=== PATIENT | female | born 1995 | race Two or more races ===

== ENCOUNTER 2024-11-30 02:34 | Emergency (ER) | payer OTHER ==
[~2024-11-30] VITALS: Ht 154.9 cm; Wt 122.5 kg
[2024-11-30] MEDS ORDERED: GUAIFENESIN 200 MG/10 ML BLIST.PACK PO STA (05:08)
[2024-11-30] MEDS ORDERED: METHYLPREDNISOLONE SOD SUCC 125 MG VIAL IM STA (05:08)
[2024-11-30] MEDS ORDERED: DIPHENHYDRAMINE HCL 12.5 MG/5 ML BLIST.PACK PO STA (05:08)
[2024-11-30] MEDS ORDERED: METHYLPREDNISOLONE SOD SUCC 125 MG VIAL ONE (05:11)
[2024-11-30] MEDS ORDERED: GUAIFENESIN 200 MG/10 ML BLIST.PACK PO ONE (05:12)
[2024-11-30] MEDS ORDERED: DIPHENHYDRAMINE HCL 12.5 MG/5 ML BLIST.PACK PO ONE (05:12)
[2024-11-30] MEDS ORDERED: ALBUTEROL SULFATE 3 ML/2.5 MG AMPUL.NEB IH SCH (05:15)
[2024-11-30 05:45] LABS: HEMATOCRIT 35.3 % (36.0-45.00); HEMOGLOBIN 11.9 g/dL (12.0-15.00); MEAN CORPUSCULAR HEMOGLOBIN 25.9 pg (27.00-32.0); MEAN CORPUSCULAR HGB CONC 33.7 g/dl (32.0-36.0); PLATELET COUNT 337 K/uL (150-450); RED BLOOD COUNT 4.59 M/uL (4.00-6.00); RED CELL DISTRIBUTION WIDTH 13.6 % (11.5-14.5)
[2024-11-30] MEDS ORDERED: ALBUTEROL SULFATE 3 ML/2.5 MG AMPUL.NEB IH ONE (05:45)
[2024-11-30 08:04] LABS: COVID-19 AG NEGATIVE (NEGATIVE)
[2024-11-30 08:12] LABS: INFLUENZA A AG NEGATIVE (NEGATIVE)
== END 2024-11-30 09:12 | disposition home or self-care (01) ==
LOC: ER 02:35
PROVIDERS: General Practice
DX: R50.9 Fever, unspecified (principal); J45.909 Unspecified asthma, uncomplicated; Z88.8 Allergy status to other drugs, medicaments and biological substances; Z20.822 Contact with and (suspected) exposure to COVID-19

== ENCOUNTER 2024-12-09 21:05 | Emergency (ER) | payer OTHER ==
[~2024-12-09] VITALS: Ht 182.9 cm; Wt 122.5 kg
[2024-12-09] MEDS ORDERED: METOCLOPRAMIDE HCL 5 MG/ML VIAL IM STA (22:05)
[2024-12-09] MEDS ORDERED: FAMOtidine 10 MG/ML (4ML VIAL) IV PUSH STA (22:06)
[2024-12-09] MEDS ORDERED: HYOSCYAMINE SULFATE 0.125 MG TAB.SUBL SL ONE (22:15)
[2024-12-09] MEDS ORDERED: METOCLOPRAMIDE HCL 5 MG/ML VIAL ONE (22:31)
[2024-12-09] MEDS ORDERED: HYOSCYAMINE SULFATE 0.125 MG TAB.SUBL ONE (22:31)
[2024-12-09] MEDS ORDERED: FAMOTIDINE/PF 20 MG/2 ML VIAL ONE (22:32)
== END 2024-12-09 22:53 | disposition home or self-care (01) ==
LOC: ER 21:15
DX: K29.70 Gastritis, unspecified, without bleeding (principal); Z88.8 Allergy status to other drugs, medicaments and biological substances; K21.9 Gastro-esophageal reflux disease without esophagitis

== ENCOUNTER 2025-01-13 21:42 | Emergency (ER) | payer OTHER ==
[~2025-01-13] VITALS: Ht 154.9 cm; Wt 90.7 kg
[2025-01-14] MEDS ORDERED: CEFTRIAXONE SODIUM 1,000 MG VIAL IM STA (05:11)
[2025-01-14] MEDS ORDERED: HYDROCODONE/CHLORPHEN P-STIREX 5 ML ML PO STA (05:12)
[2025-01-14] MEDS ORDERED: CEFTRIAXONE SODIUM 1,000 MG VIAL ONE (05:16)
[2025-01-14] MEDS ORDERED: LIDOCAINE HCL 1% 10ML VIAL ONE (05:17)
== END 2025-01-14 05:27 | disposition home or self-care (01) ==
LOC: ER 23:34
DX: J06.9 Acute upper respiratory infection, unspecified (principal); Z88.5 Allergy status to narcotic agent

== ENCOUNTER 2025-01-28 23:05 | Emergency (ER) | payer OTHER ==
[~2025-01-28] VITALS: Ht 154.9 cm; Wt 90.7 kg
[2025-01-29] MEDS ORDERED: KETOROLAC TROMETHAMINE 60 MG VIAL IM STA (00:35)
[2025-01-29 01:16] LABS: BASO % 0.6 % (0.1-1.2); EOS # 0.96 (0.04-0.54); EOS % 10.2 % (0.7-7.0); HEMATOCRIT 37.3 % (34.1-44.9); HEMOGLOBIN 12.1 g/dL (11.2-15.7); LYMPH # 2.07 (1.18-3.74); MEAN CORPUSCULAR HEMOGLOBIN 24.9 pg (25.6-32.2); MONO # 0.52 (0.24-0.82); MONO % 5.5 % (4.7-12.5); NEUT % 61.5 % (34.0-71.1); PLATELET COUNT 333 K/uL (163-369); RED BLOOD COUNT 4.85 M/uL (3.93-5.22); RED CELL DISTRIBUTION WIDTH 12.9 % (11.6-14.4)
[2025-01-29 01:54] LABS: URINE APPEARANCE Clear; URINE BILIRRUBIN Negative (NEGATIVE); URINE BLOOD Negative; URINE COLOR Yellow; URINE GLUCOSE Negative (NEGATIVE); URINE KETONE Negative (NEGATIVE); URINE LEUKOCYTE Small; URINE NITRATE Negative; URINE PROTEIN Negative (NEGATIVE); URINE UROBILINOGEN 0.2 E.U./dl
[2025-01-29 01:57] LABS: URINE BACTERIA 1088.1 uL (0.0-1933); URINE RBC 4.2 uL (0.0-20.8); URINE WBC 47.4 uL (0.0-23.2)
[2025-01-29 02:08] LABS: ANION GAP 12 (10.0-20.0); BLOOD UREA NITROGEN 12 mg/dL (7-18); BUN CREA RATIO 17 (7.0-25.0); CALCIUM 9.1 mg/dL (8.5-10.1); CARBON DIOXIDE 28 mEq/L (21-32); CHLORIDE 106 mmol/L (98-107); CREATININE SERUM 0.72 mg/dL (0.55-1.02); GFR 94.48; GLUCOSE FASTING 96 mg/dL (65-100); OSMOLALITY SERUM 283 MOSM/KG (275-295); POTASSIUM 3.95 mEq/L (3.5-5.1); SODIUM 142 mmol/L (136-145)
[2025-01-29 02:28] LABS: HCG QUANTITATIVE < 1 mUI/mL (1-3)
[2025-01-29] MEDS ORDERED: KETO10TA2 PO (04:21)
== END 2025-01-29 04:33 ==
LOC: ER 23:24
PROVIDERS: General Practice
DX: N93.8 Other specified abnormal uterine and vaginal bleeding (principal); Z88.8 Allergy status to other drugs, medicaments and biological substances; E28.2 Polycystic ovarian syndrome